=== PATIENT | male | born 1980 | race Caucasian/White ===

== ENCOUNTER 2016-09-16 10:13 | Inpatient (IN) | payer OTHER ==
[~2016-09-16] VITALS: Ht 177.8 cm; Wt 131.1 kg
[2016-09-16] MEDS ORDERED: PIP/TAZO PER PHARMACY MC PRN (10:30)
[2016-09-16 11:25] LABS: ALBUMIN 3.7 g/dL (3.4-5.0); ALBUMIN/GLOBULIN RATIO 0.8 (1.0-1.7); CALCIUM 9.2 mg/dL (8.5-10.1); GFR 86.1; MAGNESIUM 1.9 mg/dL (1.8-2.4); POTASSIUM 4.3 mmol/L (3.5-5.1); TOTAL BILIRUBIN 0.3 mg/dL (0.2-1.0); TOTAL PROTEIN 8.1 g/dL (6.4-8.2)
[2016-09-16 11:40] VITALS: BP 167/85
[2016-09-16] MEDS ORDERED: IV NORMAL SALINE 250ML 250 ML ONE (12:09)
[2016-09-16] MEDS: PIPERACILLIN/TAZOBACTAM 3.375 GM in IV NORMAL SALINE 50ML 50 ML IV SCH ×3 (12:19→23:47)
[2016-09-16] MEDS ORDERED: VANCOMYCIN 2 GM in IV NORMAL SALINE 500ML 500 ML IV ONE (13:30)
--- NOTE | 2016-09-16 13:37 | HP ---
ADMIT DATE: 09/16/2016 REASON FOR ADMISSION: Cellulitis of the left 4th and 5th toe/failed outpatient antibiotics. HISTORY OF PRESENT ILLNESS: This is a 35-year-old who does not exactly know how his foot got so swollen and red. He states he did have athlete's feet and the foot has been sore for the last week and swollen. He did go to see his primary care physician who prescribed antibiotics; however, he failed outpatient treatment. PAST MEDICAL HISTORY: Negative. PAST SURGICAL HISTORY: Negative. MEDICATIONS: None. ALLERGIES: None. HABITS: The patient chews tobacco, has an occasional drink. He has starting to being running treadmill, now for several, couple of miles. FAMILY HISTORY: Maternal grandfather had heart disease. REVIEW OF SYSTEMS: As per HPI. PHYSICAL EXAMINATION: VITAL SIGNS: Blood pressure 167/85, pulse 76, respirations 20, pulse ox 98% on room air, temperature 97.6, height 70 inches, weight 288 pounds, BMI of 41.3. GENERAL: A 35-year-old, in no acute distress. HEENT: His hearing is normal. His eyes are clear. His nose was patent. His throat was clear. NECK: Supple, without adenopathy. LUNGS: Clear to auscultation. CARDIOVASCULAR: Regular rhythm and rate. ABDOMEN: Soft, nontender. EXTREMITIES: Left extremity with extensive swelling of the fourth toe with erythema and a break in the skin. Fifth toe also swollen and erythematous. LABORATORY DATA: CBC per Juan revealed white count is elevated. His CMP shows AST 132, ALT of 349, alkaline phosphatase of 118. ASSESSMENT: 1. Cellulitis of the fourth and fifth left toe 2. History of athlete's feet. 3. Morbid obesity. 4. Elevated liver function test, questionable etiology. We will need workup as an outpatient. 5. Tobacco chewing, needs to quit. PLAN: IV antibiotics, wound care and culture was done at Juan's office. ALOK AQUINO DO DR: LEO/millicent JOB#: [id number] / [id number]
[2016-09-16] MEDS: VANCOMYCIN PER PHARMACY MC PRN (14:24)
[2016-09-16 14:49] VITALS: BP 131/75
[2016-09-16 15:04] VITALS: BP 131/75
[2016-09-16] MEDS: ACETAMINOPHEN 325 MG TABLET PO PRN (18:09)
[2016-09-16 18:56] VITALS: BP 136/75
[2016-09-16] MEDS: VANCOMYCIN 1.75 GM in IV NORMAL SALINE 500ML 500 ML IV SCH (21:50)
[2016-09-17] MEDS ORDERED: IV NORMAL SALINE 100ML 100 ML ONE (00:19)
[2016-09-17] MEDS: ACETAMINOPHEN 325 MG TABLET PO PRN (00:28)
[2016-09-17] MEDS: PIPERACILLIN/TAZOBACTAM 3.375 GM in IV NORMAL SALINE 50ML 50 ML IV SCH ×3 (05:41→18:21)
[2016-09-17 05:50] VITALS: BP 120/72
[2016-09-17] MEDS ORDERED: VANCOMYCIN 1 GM VIAL. ONE (05:57)
[2016-09-17] MEDS ORDERED: VANCOMYCIN 750 MG VIAL. IV ONE (05:57)
[2016-09-17] MEDS: VANCOMYCIN 1.75 GM in IV NORMAL SALINE 500ML 500 ML IV SCH ×3 (06:00→23:09)
[2016-09-17] MEDS ORDERED: IV NORMAL SALINE 500ML 500 ML ONE (06:07)
[2016-09-17 07:01] LABS: BASO # 0.1 x10^3/uL (0.0-0.2); BASO % 1 % (0-3); EOS # 0.4 x10^3/uL (0.0-0.7); EOS % 5 % (0-3); HEMATOCRIT 41.1 % (39.0-53.0); HEMOGLOBIN 13.8 g/dL (13.0-17.5); LYMPH # 1.8 x10^3/uL (1.0-4.8); LYMPH % 23 % (24-48); MEAN CORPUSCULAR HEMOGLOBIN 30 pg (25-35); MEAN CORPUSCULAR HGB CONC 34 g/dL (31-37); MEAN CORPUSCULAR VOLUME 91 fL (79-100); MONO # 0.7 x10^3/uL (0.0-1.1); MONO % 8 % (0-9); NEUT # 5.1 x10^3uL (1.8-7.7); NEUT % 63 % (31-73); PLATELET COUNT 358 x10^3/uL (140-400); RED BLOOD COUNT 4.55 x10^6/uL (4.30-5.70); RED CELL DISTRIBUTION WIDTH 12.9 % (11.5-14.5)
[2016-09-17 07:33] LABS: ALBUMIN 3.3 g/dL (3.4-5.0); ALBUMIN/GLOBULIN RATIO 0.8 (1.0-1.7); CALCIUM 8.8 mg/dL (8.5-10.1); CREATININE 1.1 mg/dL (0.7-1.3); GFR 77.1; POTASSIUM 4.2 mmol/L (3.5-5.1); TOTAL BILIRUBIN 0.5 mg/dL (0.2-1.0); TOTAL PROTEIN 7.4 g/dL (6.4-8.2)
[2016-09-17] MEDS ORDERED: KETOROLAC 30 MG/ML VIAL. IV PRN (10:45)
[2016-09-17] MEDS: IBUPROFEN 800 MG TABLET. PO PRN ×2 (12:16→20:18)
[2016-09-17 14:00] LABS: VANC TR 15.3 mcg/mL (10.0-20.0)
[2016-09-17 15:09] VITALS: BP 133/75
[2016-09-17] MEDS: VANCOMYCIN PER PHARMACY MC PRN (15:16)
[2016-09-17 18:53] VITALS: BP 146/83
--- NOTE | 2016-09-17 18:59 | PN ---
DATE: 09/17/2016 PROBLEMS: 1. Cellulitis of the fourth and fifth left toes. 2. History of Athlete's foot. 3. Morbid obesity. 4. Oral tobacco dependence. 5. Elevated liver function tests, questionable side effect of p.o. antibiotic versus fatty liver. SUBJECTIVE: A 35-year-old male with failed outpatient antibiotic treatment for his cellulitis of his left 2 toes, foot is much better today, less swelling, less pain, less erythema did not sleep well last night. OBJECTIVE: VITAL SIGNS: Blood pressure 120/72, pulse 74, respirations 18, temperature 97.2, pulse ox 97% on room air. LUNGS: Clear. CARDIOVASCULAR: Regular rhythm and rate without murmur. EXTREMITIES: Left foot is considerable decrease in swelling and redness, but the fourth toe on particular still draining still has a small ulcer and the fifth toe shows mild erythema. PLAN: Continue antibiotics IV for another day, counseled regarding his weight as well as the chewing tobacco that he needs to quit that and possible discharge tomorrow. ALOK AQUINO DO DR: LEO/millicent JOB#: [id number] / [id number]
[2016-09-18] MEDS: PIPERACILLIN/TAZOBACTAM 3.375 GM in IV NORMAL SALINE 50ML 50 ML IV SCH ×3 (02:32→12:32)
[2016-09-18 05:48] VITALS: BP 135/81
[2016-09-18] MEDS: VANCOMYCIN 1.75 GM in IV NORMAL SALINE 500ML 500 ML IV SCH ×3 (06:00→21:42)
[2016-09-18 08:22] VITALS: BP 127/71
[2016-09-18] MEDS: IBUPROFEN 800 MG TABLET. PO PRN ×2 (08:50→21:42)
[2016-09-18 11:01] VITALS: BP 162/73
[2016-09-18 15:09] VITALS: BP 157/86
[2016-09-18 19:54] VITALS: BP 143/80
--- NOTE | 2016-09-18 20:14 | PN ---
DATE: 09/18/2016 SUBJECTIVE: The patient is resting, slightly propped up in bed, in no apparent respiratory distress. He is awake, alert. On questioning him, denied any complaint, in particular denied any chills, rigors, or fever, denied any pain in his left foot. OBJECTIVE: GENERAL: On examined him, he looked well and was clearly in no apparent respiratory distress, pale, but no jaundice, cyanosis, or thyromegaly. No jugular venous distention. No limb edema. VITAL SIGNS: His heart rate was 67, blood pressure 162/73, temperature was 97.6, respiratory rate 20 and oxygen saturation was 98%. HEAD, EYES, EARS, NOSE AND THROAT: Showed normocephalic, atraumatic. NECK: Supple. HEART: Showed normal first and second heart sounds with no gallop, rub or murmur. CHEST: Clear to auscultation. No crepitation or rhonchi. ABDOMEN: Distended, soft, nontender. No guarding or rigidity. No organomegaly. All hernial orifices intact. Bowel sounds normal. NEUROLOGIC: He is awake, alert, responding appropriately. Cranial nerves are intact. He moves extremities without difficulty. SKIN: Showed that he had the swelling where his left fourth and fifth toes are much improved. He does have skin break on the dorsal aspect of his left fifth toe with marked maceration between the fifth and fourth and between fourth and third spaces consistent with athlete's foot, probably the portal of entry. LABORATORY DATA: His lab work as of yesterday showed a white cell count of 8000, hemoglobin 13.8, hematocrit 41, MCV 91, and platelet count 358,000 with normal manual differential. Serum sodium was 143, potassium 4.2, chloride 107, bicarbonate 29, anion gap of 7, BUN 10, creatinine 1.1. Estimated GFR was 77 mL per minute. His glucose was 99. Calcium was 8.8. Total bilirubin and alkaline phosphatase were normal. His AST, ALT were elevated; however, they are trending down. His total protein was 7.4, albumin 3.3. His vancomycin trough level was within therapeutic range. ASSESSMENT: Cellulitis of the left fourth and five toes, history of athlete's feet, morbid obesity, abnormal liver enzyme, most likely due to nonalcoholic steatohepatitis, chewing tobacco. PLAN: To continue with IV antibiotic. He is now on vancomycin as well as piperacillin, tazobactam. I will repeat his lab work and do an x-ray of his left foot, start him also on nystatin powder for interdigital space. So far, we have no culture and sensitivity. We will obviously decide on further treatment according to the culture and sensitivity tomorrow. LULA WARREN MD DR: MIGUEL/millicent JOB#: [id number] / [id number]
[2016-09-18] MEDS: TERBINAFINE 1% TOPICAL CREAM 30GM TUBE. TP SCH (21:00)
[2016-09-18 23:35] VITALS: BP 136/76
[2016-09-19 05:11] VITALS: BP 186/77
[2016-09-19] MEDS: VANCOMYCIN 1.75 GM in IV NORMAL SALINE 500ML 500 ML IV SCH ×2 (05:26→15:36)
[2016-09-19 05:47] LABS: BASO # 0.1 x10^3/uL (0.0-0.2); BASO % 1 % (0-3); EOS # 0.4 x10^3/uL (0.0-0.7); EOS % 4 % (0-3); HEMATOCRIT 41.1 % (39.0-53.0); HEMOGLOBIN 13.9 g/dL (13.0-17.5); LYMPH # 2.2 x10^3/uL (1.0-4.8); LYMPH % 24 % (24-48); MEAN CORPUSCULAR HEMOGLOBIN 31 pg (25-35); MEAN CORPUSCULAR HGB CONC 34 g/dL (31-37); MEAN CORPUSCULAR VOLUME 90 fL (79-100); MONO # 0.6 x10^3/uL (0.0-1.1); MONO % 7 % (0-9); NEUT # 6.2 x10^3uL (1.8-7.7); NEUT % 65 % (31-73); PLATELET COUNT 371 x10^3/uL (140-400); RED BLOOD COUNT 4.56 x10^6/uL (4.30-5.70); RED CELL DISTRIBUTION WIDTH 13.1 % (11.5-14.5); WHITE BLOOD COUNT 9.5 x10^3/uL (4.0-11.0)
[2016-09-19 06:03] LABS: ALBUMIN 3.3 g/dL (3.4-5.0); ALBUMIN/GLOBULIN RATIO 0.8 (1.0-1.7); C REACTIVE PROTEIN 7.3 mg/L (0-3.3); CALCIUM 8.7 mg/dL (8.5-10.1); GFR 86.1; TOTAL BILIRUBIN 0.3 mg/dL (0.2-1.0); TOTAL PROTEIN 7.2 g/dL (6.4-8.2)
[2016-09-19 07:22] LABS: SEDIMENTATION RATE 14 (0-15)
[2016-09-19 08:24] VITALS: BP 168/82
[2016-09-19] MEDS: TERBINAFINE 1% TOPICAL CREAM 30GM TUBE. TP SCH (09:30)
[2016-09-19 10:23] VITALS: BP 150/70
[2016-09-19 14:06] LABS: VANC TR 17.2 mcg/mL (10.0-20.0)
[2016-09-19 15:25] VITALS: BP 144/79
--- NOTE | 2016-09-19 15:56 | RAD ---
Nuclear medicine 3 phase bone scan History: Left foot infection of the fourth and fifth toe for 2 weeks. Comparison: No comparison radiographs available. Technique: Examination performed after intravenous administration of 24.0 mCi Technetium 99m MDP. Anterior and plantar planar imaging was performed of both feet for the first 2 phases. Delayed planar imaging was performed of both feet in the anterior, plantar, and both lateral projections. Findings: The first 2 phases demonstrate increased activity involving the left foot centered at the fourth digit. Delayed phase demonstrates no associated increased bone activity involving the left foot. Findings are compatible with soft tissue infection. There is no evidence of osteomyelitis. Impression: Soft tissue infection of the left foot centered at the fourth digit. No evidence of osteomyelitis.
[2016-09-19] MEDS: VANCOMYCIN PER PHARMACY MC PRN (16:43)
[2016-09-19] MEDS ORDERED: SULF1TAB24 PO (17:05)
[2016-09-19] MEDS ORDERED: TERB15CR2 TP (17:06)
--- NOTE | 2016-09-19 23:37 | DS ---
DATE OF DISCHARGE: 09/19/2016 HOSPITAL COURSE: The patient was admitted on 09/16/2016 with pain, redness and swelling of his left foot involving mostly his left fourth and fifth toes. He has history of athlete's foot and was started on IV antibiotics initially on both vancomycin and Zosyn. His culture showed growth of methicillin-resistant Staphylococcus aureus sensitive to vancomycin and was treated with IV vancomycin at 1.75 g 3 times a day as recommended by the pharmacist. He did actually very well. We did a bone scan this morning, which showed that the findings are compatible with soft tissue infection. There is no evidence of osteomyelitis and therefore, a decision was made to discharge him home to continue treatment with Bactrim DS 1 tablet twice a day to finish another 8 days to come and have daily dressing changes every other day as recommended by the Wound Care Team and also continue with the terbinafine twice a day to the affected areas for at least 2 weeks. PHYSICAL EXAMINATION: GENERAL: When I examined him this afternoon, he looked well and was clearly in no apparent respiratory distress. VITAL SIGNS: His heart rate was 64, blood pressure 144/79, temperature was 98.7, respiratory rate 20 and oxygen saturation was 99%. The rest of clinical examination is unremarkable, has not really changed. LABORATORY DATA: His white cell count was 9500, hemoglobin 13.9, hematocrit 41, MCV 90 and platelet count 371,000. His chemistry showed a serum sodium 143, potassium 4, chloride 107, bicarbonate 29, anion gap of 7, BUN 12, creatinine 1, estimated GFR was 86 mL per minute. His glucose was 93, calcium was 8.7. Total bilirubin, AST and alkaline phosphatase were normal. ALT is coming down. C-reactive protein was 7.3 mg/dL. Total protein was 7.2, albumin 3.3. DISCHARGE MEDICATIONS: He was discharged home to continue on Bactrim DS 1 tablet twice a day for 10 days, terbinafine cream applied topically twice a day to athlete's foot for at least 2 weeks. DISCHARGE INSTRUCTIONS: He may return to work on 10/02/2016. He should follow as an outpatient for dressing changes every other day at [facility]. LULA WARREN MD DR: MIGUEL/millicent JOB#: [id number] / [id number]
[2016-09-20] MEDS ORDERED: VANCOMYCIN 1.75 GM in IV NORMAL SALINE 500ML 500 ML IV SCH (02:00)
== END 2016-09-19 18:35 | disposition home or self-care (01) | DRG 603 ==
LOC: 1 SOUTH 10:13
PROVIDERS: ADMIT Family Medicine; ATTEND Family Medicine
DX: L03.032 Cellulitis of left toe (principal); Z68.41 Body mass index [BMI] 40.0-44.9, adult; K75.81 Nonalcoholic steatohepatitis (NASH); F17.200 Nicotine dependence, unspecified, uncomplicated; E66.01 Morbid (severe) obesity due to excess calories; A49.02 Methicillin resistant Staphylococcus aureus infection, unspecified site; R79.89 Other specified abnormal findings of blood chemistry; B35.3 Tinea pedis; Z82.49 Family history of ischemic heart disease and other diseases of the circulatory system; Z71.6 Tobacco abuse counseling
CPT/HCPCS: 36415; 78315; 80053; 80202; 83735; 85027; 85651; 86140; 96374; A9503; J2543; J3370; J7040; J7050